=== PATIENT | male | born 1995 | race Caucasian/White ===

== ENCOUNTER 2017-07-06 11:09 | Emergency (ER) | payer OTHER, SELFPAY ==
[2017-07-06] MEDS ORDERED: Adacel (T-DAP) 0.5 ML VIAL ONE ×2 (12:34→14:07)
[2017-07-06] MEDS ORDERED: Lidocaine 2% PF 5 ML VIAL ONE (14:23)
[2017-07-06] MEDS ORDERED: Bacitracin Zinc 1 Packet ONE (15:15)
== END 2017-07-06 15:11 | disposition home or self-care (01) ==
LOC: ERS 11:09
DX: S61.411A Laceration without foreign body of right hand, initial encounter (principal); F17.220 Nicotine dependence, chewing tobacco, uncomplicated; W26.8XXA Contact with other sharp object(s), not elsewhere classified, initial encounter; Y99.0 Civilian activity done for income or pay
CPT/HCPCS: 12001; 90471; 90715; J2001